=== PATIENT | female | born 1945 | race Caucasian/White ===

== ENCOUNTER 2023-06-07 14:10 | Outpatient (CLI) | payer MEDICARE, BC | END 2023-06-07 14:11 | disposition home or self-care (01) | LOC: BICRAD 14:10 | PROVIDERS: ATTEND Internal Medicine Rheumatology | DX: M19.012 Primary osteoarthritis, left shoulder (principal); M17.11 Unilateral primary osteoarthritis, right knee; S42.252A Displaced fracture of greater tuberosity of left humerus, initial encounter for closed fracture ==